=== PATIENT | male | born 1975 | race Caucasian/White ===

== ENCOUNTER 2017-01-26 11:00 | Emergency (ER) | payer BC ==
[~2017-01-26] VITALS: Ht 170.2 cm; Wt 118.5 kg
[2017-01-26 11:03] VITALS: TEMP 36.7; Ht 170.2 cm; Wt 118.5 kg
[2017-01-26] MEDS ORDERED: XYLOCAINE 1%/SOD BICARB 20 ML VIAL INFIL ONE (11:11)
[2017-01-26] MEDS ORDERED: HYDR-5688 PO (11:55)
--- NOTE | 2017-01-26 11:57 | EMERGENCY ROOM VISIT NOTE ---
ED Visit Note First contact with patient: 11:31 CHIEF COMPLAINT: Cyst on tailbone HISTORY OF PRESENT ILLNESS: This 41-year-old male patient presents to the emergency department ambulatory complaining of a cyst on his tailbone. He reports that he first developed pain in the area approximately 2 weeks ago. For the last 4 days, it has been difficult to sit due to the pain. He reports that he was seen at an urgent care yesterday and put on Augmentin and told that the cyst was not ready to be drained. He reports that last night, the area began to drain while he was sitting. He has had a history one other pilonidal cyst approximately 10 years ago. He denies any associated fevers or chills. He rates his discomfort a 7/10. He did not yesterday antibiotic given to him. The patient is not diabetic. REVIEW OF SYSTEMS: A review of systems was performed with positives and pertinent negatives listed in the history of present illness. All other systems were reviewed and are negative. ALLERGIES: No known drug allergies MEDICATIONS: No chronic medications PMH: No significant past medical history. SOCIAL HISTORY: The patient lives locally with family. PHYSICAL EXAM: Vital Signs: Reviewed Nurse's notes, vital signs stable. GENERAL : This is a 41-year-old male, no acute distress, non toxic in appearance, well- developed well-nourished. SKIN: There is an erythematous indurated area in the gluteal cleft which measures about 2 cm in diameter. There is minimal central fluctuance with a small opening, but no active drainage. There is no significant surrounding cellulitis. EMERGENCY DEPARTMENT COURSE: I examined the patient. Verbal consent was obtained to perform the procedure. After saline and Betadine cleansing and 4 mL of 1% buffered lidocaine anesthesia, the abscess was incised with a number 11 scalpel blade. A large amount of purulent material was released with more expressed by pressure. A swab was obtained for culture. The abscess cavity was further probed with a needle moving van driver and the deep pocket expressed. The abscess cavity was then copiously irrigated with sterile saline under pressure. The area was then packed with bacitracin soaked packing. The area was cleaned with sterile saline and dressed with bacitracin and a bulky bandage. The patient tolerated the procedure well. The patient was instructed to take the Augmentin pending the culture results. He will return for packing removal in 2 days. The patient was discharged home in stable condition. DIAGNOSIS: Pilonidal abscess Problem List Medical Problems: (1) no chronic medical problems Status: Chronic Current/Historical Medications Scheduled PRN Hydrocodone/Acetaminophen 5MG/325MG (Lavinia 5MG/325MG), 1-2 TABLET PO Q4H PRN for Pain Allergies Coded Allergies: No Known Allergies (Unverified Allergy, Mild, 10/01/07) Vital Signs Date Time Temp Pulse Resp B/P Pulse Ox O2 Delivery O2 Flow Rate FiO2 01/26/17 12:10 89 16 157/94 99 01/26/17 11:03 36.7 93 18 165/94 95 Room Air Departure Information Impression Primary Impression: Pilonidal abscess Dispostion Home / Self-Care Condition GOOD Prescriptions Hydrocodone/Acetaminophen 5MG/325MG (Lavinia 5MG/325MG) Tab 1-2 TABLET PO Q4H Y for Pain, #10 TAB For Initial Treatment Prov: Karley Mchugh ., MARIA G 01/26/17 Referrals No Doctor, Assigned (PCP) Loraine Doyle MD Patient Instructions ED Cyst Pilonidal Infected [place], [place] [facility] Additional Instructions You were seen in the Emergency Department for Incision and Drainage of your pilonidal abscess. You will NEED to return to the Emergency Department to have the packing removed/changed in 48 hours. This packing is NOT dissolvable and WILL need to be removed by a health care provider. Try to leave the packing in place until you return to the Emergency Department. You have been prescribed Lavinia to be used for pain control. This is a narcotic medication. You cannot drive or consume alcohol while on this medicine. This medicine should only be used for pain that cannot be controlled with over-the- counter pain medicines. Take the Augmentin, twice daily as prescribed for 7 days. Proper wound care is essential for adequate wound healing and infection prevention. You can shower and clean the wound with soap and water. Do not scour over the wound. Pat dry with a towel. Do not submerse the wound (i.e. bathe or dish wash) until the sutures have been removed. You can use an antibiotic ointment with a dressing over the wound for the next 3-4 days. After this time you may leave the wound dry and open to the air. If crust develops over the wound you can use a Q-tip to apply a 1:1 peroxide:water solution to clean the wound. Look for signs of infection of the wound including: increased pain, swelling, foul discharge, streaking, or increased temperature. If any of these are noticed you should return to the Emergency Department for further assessment and treatment. As with any laceration you may have received nerve damage to the surrounding tissues. This damage may or may not be permanent. For pain control, you can use the following vxvx-yoo-rgumyfz medicines (if >12 yo): - Regular strength (325mg/tab) Tylenol (acetaminophen) 2 tabs every 4-6 hours as needed. Do not exceed 12 tablets in a 24 hour period. Avoid taking more than 4 grams (4000 mg) of Tylenol per day. This includes any other sources of acetaminophen you may take on a regular basis. - Regular strength (200 mg/tab) Advil (ibuprofen) 1-2 tabs every 4-6 hours as needed. Do not exceed a dose of 3200 mg per day. You may want to see a general surgeon in the future for definitive removal of the cyst pocket. Return to the emergency department if your symptoms worsen despite treatment course outlined above.
[2017-01-26 12:10] VITALS: BP 157/94; PULSE 89; O2SAT 99
== END 2017-01-26 12:12 | disposition home or self-care (01) ==
LOC: C.EDB 11:02 → C.EDD 12:12
DX: L05.91 Pilonidal cyst without abscess (principal)

== ENCOUNTER 2017-01-28 15:54 | Emergency (ER) | payer BC ==
[~2017-01-28] VITALS: Ht 170.2 cm; Wt 114.8 kg
[~2017-01-28 15:54] MED LIST: HYDR-5688 PO
[2017-01-28 15:56] VITALS: BP 139/90; PULSE 78; TEMP 36.4; O2SAT 95; Ht 170.2 cm; Wt 114.8 kg
--- NOTE | 2017-01-28 17:03 | EMERGENCY ROOM VISIT NOTE ---
History First contact with patient: 16:15 Chief Complaint: PACKING REMOVAL Stated Complaint: NEED PACKING REMOVED, SWEATS, COLD, FATIGUE, DIZZY Nursing Triage Summary: Pt here for packing removal from cyst on Friday. Per s.o. reports pt has been having generalized illness, fevers. pt is takin pain meds and abx at home as prescribed History of Present Illness The patient is a 41 year old male who presents to the Emergency Room for packing removal from a pilonidal cyst that was drained in our department 2 days ago. The patient reports that the area is starting to decrease in pain. He does report mild persistent prone and drainage from the wound. The patient admits that he just started his Augmentin antibiotics last night, having taken just 2 doses at this point. The patient has had some fatigue, sweats and chills. He has not checked his temperature at home. The patient denies any prior history of antibiotic resistant infections. He rates his discomfort a 4 out of 10. Review of Systems 10 system review was performed and was negative except for pertinent positives and negatives as indicated in history of present illness Past Medical/Surgical History Medical Problems: (1) no chronic medical problems Family History Diabetes mellitus Heart disease Hypertension Social History Smoking Status: Former Smoker Drug Use: heroin Marital Status: single Housing Status: lives with family Occupation Status: employed Current/Historical Medications No Active Prescriptions or Reported Meds Allergies Coded Allergies: No Known Allergies (Unverified Allergy, Mild, 10/01/07) Physical Exam Vital Signs Date Time Temp Pulse Resp B/P Pulse Ox O2 Delivery O2 Flow Rate FiO2 01/28/17 15:56 36.4 78 18 139/90 95 Room Air Physical Exam CONSTITUTIONAL: Healthy and well nourished. Alert and oriented X 3 with positive affect. GASTROINTESTINAL: Bowel sounds present in all quadrants. Soft and nontender to palpation. MUSCULOSKELETAL: Full range of motion of all joints without discomfort. No worsening pain with logroll. INTEGUMENTARY: Examination of the pilonidal region shows packing in place. This was removed with minimal purulent drainage. A bacitracin dressing was reapplied. Medical Decision & Procedures Laboratory Results Review of cultures from the previous visit shows Bacteroides fragilis with pansensitivity. ED Course Patient history and physical exam were performed. Nurse's notes were reviewed. Vital signs were reviewed and were normal. The patient is afebrile, normotensive and not tachycardic. Cultures were reviewed, showing pansensitivity. At this point, the patient was given further instructions on wound care. He was encouraged to continue with his pain medications, ibuprofen and Tylenol as needed for pain. I did suggest that he follow up with his PCP in the next 2-3 days for reevaluation, returning to the emergency department for any developing fever, worsening swelling or pain. The patient was happy with plan of care, and rated his discomfort a 2 out of 10 at the time of discharge. Medical Decision Impression Primary Impression: Pilonidal abscess Departure Information Dispostion Home / Self-Care Prescriptions No Active Prescriptions or Reported Meds Forms HOME CARE DOCUMENTATION FORM, IMPORTANT VISIT INFORMATION Patient Instructions My [facility] Additional Instructions Complete and finish all Augmentin antibiotics as prescribed. Perform warm soaks or clean the wound with normal saline until the wound closes in the next few days. Suggest follow-up with your family doctor for reevaluation in the next 2 or 3 days. Return to the emergency department for any developing fever or progressively worsening swelling/pain. FOR WORK: Please excuse from work Friday through Saturday 01/27-01/29.
== END 2017-01-28 16:52 | disposition home or self-care (01) ==
LOC: C.EDB 15:55 → C.EDD 16:52
DX: Z48.01 Encounter for change or removal of surgical wound dressing (principal); L05.01 Pilonidal cyst with abscess; Z87.891 Personal history of nicotine dependence; Z83.3 Family history of diabetes mellitus

== ENCOUNTER 2017-12-03 01:19 | Emergency (ER) | payer BC ==
[~2017-12-03] VITALS: Ht 170.2 cm; Wt 115.7 kg
[2017-12-03 01:21] VITALS: TEMP 36.9; Ht 170.2 cm; Wt 115.7 kg
[2017-12-03 01:33] VITALS: O2SAT 95
[2017-12-03] MEDS ORDERED: BUPR8SUB19 SL (02:02)
[2017-12-03] MEDS ORDERED: MULT-220 PO (02:02)
[2017-12-03] MEDS ORDERED: TESTOSTERONE PO (02:02)
[2017-12-03] MEDS ORDERED: TURM500T PO (02:02)
[2017-12-03] MEDS ORDERED: [UNRECOGNIZED DRUG - CODE] PO (02:02)
[2017-12-03 02:03] LABS: BASO % 0.3 %; BASO ABS # 0.03 K/uL (0-0.2); EOS % 3.4 %; EOS ABS # 0.38 K/uL (0-0.5); HEMATOCRIT 50.9 % (42-52); HEMOGLOBIN 17.1 g/dL (14.0-18.0); IG# 0.05 K/uL (0.00-0.02); LYMPH ABS # 2.49 K/uL (1.2-3.4); MEAN CELL VOLUME 89.3 fL (80-100); MEAN CORPUSCULAR HGB CONC 33.6 g/dl (32-36); MEAN PLATELET VOLUME 9.4 fL (7.4-10.4); MONO % 10.8 %; MONO ABS # 1.22 K/uL (0.11-0.59); NEUT % 63.1 %; NEUT ABS # 7.16 K/uL (1.4-6.5); PLATELET COUNT 190 K/uL (130-400); RED CELL DISTRIBUTION WIDTH SD 42.2 fL (36.4-46.3); WHITE BLOOD COUNT 11.33 K/uL (4.8-10.8)
[2017-12-03 02:18] LABS: ALBUMIN 3.6 gm/dl (3.4-5.0); CALCIUM 8.8 mg/dl (8.5-10.1); CREATININE 1.22 mg/dl (0.60-1.40); POTASSIUM 3.7 mmol/L (3.5-5.1); TOTAL PROTEIN 8.6 gm/dl (6.4-8.2)
--- NOTE | 2017-12-03 03:32 | EMERGENCY ROOM VISIT NOTE ---
History First contact with patient: 01:27 Chief Complaint: CARDIAC ASSESSMENT Stated Complaint: CHEST DISCOMFORT, NUMBNESS IN R ARM Nursing Triage Summary: strange sensation in right arm and back, described as numbness/tinging states he had heartburn earlier and took prilosec about 2229 History of Present Illness The patient is a 41 year old male who presents to the Emergency Room for evaluation of chest pain. The patient reports that earlier this evening, he had some symptoms of heartburn and indigestion. He took Prilosec and states that his symptoms improved. He reports that after those symptoms resolved, he had some discomfort that he describes as a numb sensation in the right side of his chest and right arm. He states the symptoms were mild and intermittent for about 2 hours. They have resolved at this time. The patient states that his girlfriend insisted that he come for evaluation due to family history of heart disease. The patient states that he has been checking his blood pressure at home recently and it has been elevated. He is not a smoker. He does report a family history of heart disease in his father and both grandfathers, all of whom had MIs at age 66. The patient does admit to taking testosterone, 500 mg weekly which is not prescribed to him. He takes Subutex for a history of drug abuse. He also takes multiple supplements [id number]-szakzki. He has not been to see a primary care provider in several years. He denies any shortness of breath, nausea/vomiting, jaw pain or palpitations. Review of Systems A complete 10 point review of systems was reviewed with the patient with pertinent positives and negatives as per history of present illness. All else were negative. Past Medical/Surgical History Medical Problems: (1) no chronic medical problems Family History Diabetes mellitus Heart disease Hypertension Social History Smoking Status: Former Smoker Drug Use: heroin Marital Status: single Housing Status: lives with family Occupation Status: employed Current/Historical Medications Scheduled Buprenorphine Hcl (Subutex), 8 MG SL DAILY Multiple Vitamins W/ Minerals (Multi For Him), 1 TAB PO DAILY Turmeric (Curcuma Longa) (Turmeric), 500 MG PO DAILY [Cardarine [id number]], 1 DOSE PO DAILY [Testosterone], 250 MG PO Q3DAYS Physical Exam Vital Signs Date Time Temp Pulse Resp B/P (MAP) Pulse Ox O2 Delivery O2 Flow Rate FiO2 12/03/17 03:37 97 147/81 12/03/17 03:09 60 16 12/03/17 01:35 95 12/03/17 01:33 96 16 175/93 95 Room Air 12/03/17 01:21 36.9 97 20 157/88 96 Room Air Physical Exam VITALS: Vitals are noted on the nurse's note and reviewed by myself. Vital signs stable. GENERAL: This is a 41-year-old male, in no acute distress, nondiaphoretic, well- developed well-nourished. SKIN: The skin was without rashes. HEAD: Normocephalic atraumatic. EARS: External auditory canals clear, tympanic membranes pearly lnaderos without erythema or effusion bilaterally. EYES: Pupils equal round and reactive to light and accommodation. MOUTH: Mucous membranes moist. Tonsils are not enlarged. Pharynx without erythema or exudate. NECK: Supple without nuchal rigidity. No lymphadenopathy. HEART: Regular rate and rhythm without murmurs gallops or rubs. LUNGS: Clear to auscultation bilaterally without wheezes, rales or rhonchi. No retractions or accessory muscle use. ABDOMEN: Soft, nontender to palpation. MUSCULOSKELETAL: No reproducible tenderness on exam. NEURO: Patient was alert and oriented to person place and time. Medical Decision & Procedures ER Provider Diagnostic Interpretation: CHEST X-RAY: Mildly enlarged cardiac silhouette, no acute cardiopulmonary abnormality. Laboratory Results 12/03/17 01:40 Red Blood Count 5.70, Mean Corpuscular Volume 89.3, Mean Corpuscular Hemoglobin 30.0, Mean Corpuscular Hemoglobin Concent 33.6, Mean Platelet Volume 9.4, Neutrophils (%) (Auto) 63.1, Lymphocytes (%) (Auto) 22.0, Monocytes (%) (Auto) 10.8, Eosinophils (%) (Auto) 3.4, Basophils (%) (Auto) 0.3, Neutrophils # (Auto ) 7.16, Lymphocytes # (Auto) 2.49, Monocytes # (Auto) 1.22, Eosinophils # (Auto ) 0.38, Basophils # (Auto) 0.03 12/03/17 01:40 Test 12/03/17 01:40 12/03/17 01:53 White Blood Count 11.33 K/uL (4.8-10.8) Red Blood Count 5.70 M/uL (4.7-6.1) Hemoglobin 17.1 g/dL (14.0-18.0) Hematocrit 50.9 % (42-52) Mean Corpuscular Volume 89.3 fL (80-100) Mean Corpuscular Hemoglobin 30.0 pg (25-34) Mean Corpuscular Hemoglobin Concent 33.6 g/dl (32-36) Platelet Count 190 K/uL (130-400) Mean Platelet Volume 9.4 fL (7.4-10.4) Neutrophils (%) (Auto) 63.1 % Lymphocytes (%) (Auto) 22.0 % Monocytes (%) (Auto) 10.8 % Eosinophils (%) (Auto) 3.4 % Basophils (%) (Auto) 0.3 % Neutrophils # (Auto) 7.16 K/uL (1.4-6.5) Lymphocytes # (Auto) 2.49 K/uL (1.2-3.4) Monocytes # (Auto) 1.22 K/uL (0.11-0.59) Eosinophils # (Auto) 0.38 K/uL (0-0.5) Basophils # (Auto) 0.03 K/uL (0-0.2) RDW Standard Deviation 42.2 fL (36.4-46.3) RDW Coefficient of Variation 13.0 % (11.5-14.5) Immature Granulocyte % (Auto) 0.4 % Immature Granulocyte # (Auto) 0.05 K/uL (0.00-0.02) Anion Gap 5.0 mmol/L (3-11) Est Creatinine Clear Calc Drug Dose 98.8 ml/min Estimated GFR () 86.0 Estimated GFR (Non- 74.2 BUN/Creatinine Ratio 11.7 (10-20) Calcium Level 8.8 mg/dl (8.5-10.1) Total Bilirubin 0.3 mg/dl (0.2-1) Aspartate Amino Transf (AST/SGOT) 280 U/L (15-37) Alanine Aminotransferase (ALT/SGPT) 635 U/L (12-78) Alkaline Phosphatase 70 U/L (45-117) Total Protein 8.6 gm/dl (6.4-8.2) Albumin 3.6 gm/dl (3.4-5.0) Globulin 5.0 gm/dl (2.5-4.0) Albumin/Globulin Ratio 0.7 (0.9-2) Chemistry Specimen Hemolysis Bedside Troponin I < 0.030 ng/ml (0-0.045) ECG Indication: chest pain Rate (beats per minute): 100 Rhythm: normal sinus Findings: no acute ischemic change, no ectopy Change: no significant change Medical Decision Differential diagnosis includes acute coronary syndrome, pulmonary embolism, pneumothorax, pericarditis, myocarditis, endocarditis, anxiety, musculoskeletal pain, GERD, costochondritis, pneumonia, among others. The patient is a 41-year-old male who presents today complaining of chest discomfort. Labs revealed mild leukocytosis, possibly stress-induced. Troponin was not elevated. Patient's symptoms have resolved at the time of his evaluation. Patient is PERC negative and history not consistent with PE. EKG is unremarkable and unchanged from previous. I do not feel the patient's symptoms today were cardiac in nature. Patient's LFTs were found to be significantly elevated, with AST of 280 and ALT of 635. Patient reports he does not drink alcohol or take a significant amount of Tylenol. He does have a history of IV drug use and was informed this could represent hepatitis. He does take multiple afau-axc-azapcbt supplements and was instructed to stop taking these. I had a very lengthy discussion with the patient regarding the need to follow-up closely with a primary care provider, especially given his elevation in LFTs. He was agreeable and reports he will contact PCPs today to schedule follow-up. The patient's case was reviewed with Dr. Kelly, ED attending physician, who agreed with my assessment and treatment plan. Based on the patient's presentation and work up, I feel the patient is stable for outpatient treatment. The patient was educated to return to the emergency department for any worsening of their current condition or new/concerning symptoms. He will follow up with primary care. Medication Reconcilliation Current Medication List: was personally reviewed by me Blood Pressure Screening Patient's blood pressure: Elevated blood pressure Blood pressure disposition: Referred to PCP Impression Primary Impression: Right-sided chest pain Departure Information Dispostion Home / Self-Care Condition GOOD Referrals No Doctor, Assigned (PCP) Patient Instructions My [facility] Additional Instructions You have been treated in the Emergency Department for your Chest Pain. Laboratory results and Imaging Studies have ruled out any cardiac or pulmonary cause of your chest pain. For pain control, you can use the following zlzg-oky-nirvhus medicines (if >12 yo): - Regular strength (325mg/tab) Tylenol (acetaminophen) 2 tabs every 4-6 hours as needed. Do not exceed 12 tablets in a 24 hour period. Avoid taking more than 4 grams (4000 mg) of Tylenol per day. This includes any other sources of acetaminophen you may take on a regular basis. - Regular strength (200 mg/tab) Advil (ibuprofen) 1-2 tabs every 4-6 hours as needed. Do not exceed a dose of 3200 mg per day. You should schedule a follow-up appointment with your Primary Care Provider in 2 -3 days for further evaluation from today's Emergency Department visit. Your liver function tests were significantly elevated today. You should stop all of the supplements you are taking, as they could contribute to this. It could also represent hepatitis. You MUST follow up with a primary care provider for evaluation of this. Return to the Emergency Department if your current symptoms worsen despite treatment course outlined above, or if you develop any of the following symptoms : worsening chest pain, associated jaw/arm pain, nausea, dizziness, shortness of breath, bloody cough, or fainting.
[2017-12-03 03:37] VITALS: BP 147/81; PULSE 97
--- NOTE | 2017-12-03 06:40 | DIAGNOSTIC IMAGING REPORT ---
CHEST ONE VIEW PORTABLE CLINICAL HISTORY: chest pain dyspnea COMPARISON STUDY: 09/04/2014 FINDINGS: Mild stable cardiomegaly. Diaphragms are smooth. Costophrenic angles are sharp. Lungs are clear. IMPRESSION: Mild stable cardiomegaly. Otherwise negative study. The above report was generated using voice recognition software. It may contain grammatical, syntax or spelling errors. Electronically signed by: Jared Phipps M.D. 12/03/2017 6:39 AM Dictated Date/Time: 12/03/2017 6:38 AM
== END 2017-12-03 03:40 | disposition home or self-care (01) ==
LOC: C.EDB 01:20
DX: R07.9 Chest pain, unspecified (principal); Z87.891 Personal history of nicotine dependence; Z82.49 Family history of ischemic heart disease and other diseases of the circulatory system; Z83.3 Family history of diabetes mellitus